=== PATIENT | male | born 1950 | race Caucasian/White ===

== ENCOUNTER 2019-10-17 10:19 | Emergency (ER) | payer MEDICARE, SELFPAY ==
[2019-10-17 10:21] VITALS: BP 161/101; PULSE 73; RESP 13; TEMP 36.5; O2SAT 97; BMI 29.0
--- NOTE | 2019-10-17 10:21 | CT_ITS ---
STUDY: CT BRAIN WITHOUT CONTRAST REASON FOR EXAM: Male, 69 years old. CVA RADIATION DOSAGE (If Supplied By Facility): CTDIvol = ( 44.99 ) mGy, DLP = ( 796.11 ) mGycm TECHNIQUE: Transaxial CT imaging of the brain was performed without administration of intravenous contrast material. Individualized dose optimization techniques were used for this CT. COMPARISON: No relevant priors. FINDINGS: Normal soft tissue structures. Normal calvarium. There is mild cerebral atrophy with widening of the extra-axial spaces and ventricular dilatation. There are areas of decreased attenuation within the white matter tracts of the supratentorial brain, consistent with microvascular disease changes. Normal basal ganglia and thalami. Normal brainstem. There is mild cerebellar atrophy. There is no intracranial hemorrhage. There is evidence of a increased attenuation of the right middle cerebral artery. Intraluminal thrombus should be ruled out. Correlation with the CTA is recommended. There is opacification of the right maxillary sinus. Partial opacification of the right ethmoid sinus. CT/Brain/Head without Contrast IMPRESSION: Chronic involutional changes of the brain. Findings in keeping with a hyperdense right middle cerebral artery. Correlation with the CTA is recommended. N.B. : The above information has been verbally conveyed by Kirit Luciano to Puneet Ozuna on 10/17/2019 10:34:58 (ET). Electronically Signed: Kirit Luciano, at 10:36 EDT , Service support ,
--- NOTE | 2019-10-17 10:21 | EKG12_ITS ---
Test Reason : STROKE Blood Pressure : / mmHG Vent. Rate : 064 BPM Atrial Rate : 064 BPM P-R Int : 188 ms QRS Dur : 084 ms QT Int : 438 ms P-R-T Axes : 056 007 046 degrees QTc Int : 451 ms Normal sinus rhythm Normal ECG Confirmed by MARLA ALVA ([id number]), commissioning editor KAYLA ZEPEDA ([id number]) on 10/19/2019 11:50:02 AM Referred By: FIORDALIZA Confirmed By:MARLA ALVA
--- NOTE | 2019-10-17 10:25 | CM.ED ---
SOCIAL WORK Responded to Stroke Alert. Patient in CT. No family present at this time. Will remain available for needs. Rickey Siddiqui, HAND DRY CLEANER, HAND FOLDER
--- NOTE | 2019-10-17 10:27 | CT_ITS ---
STUDY: CTA HEAD AND NECK WITH CONTRAST REASON FOR EXAM: Male, 69 years old. SLURRED SPEECH, STROKE ALERT, NEURO DEFICIT RADIATION DOSAGE (If Supplied By Facility): CTDIvol = ( 19.33 ) mGy, DLP = ( 726.32 ) mGycm TECHNIQUE: CT angiography was performed with a multi-detector CT scanner. Data acquisition was obtained from the skull base through the vertex following intravenous administration of 100ML ISOVUE 370. MIP images were reconstructed from the axial data set. Post-processing of the angiographic images was performed, with multiplanar reformation and 3D reconstruction. Individualized dose optimization techniques were used for this CT. COMPARISON: No relevant priors. FINDINGS: Normal bilateral petrous carotid arteries. Normal right cavernous carotid artery with a normal supraclinoid bifurcation. Normal left cavernous carotid artery with a normal supraclinoid bifurcation. Normal right A1 segments of the anterior cerebral artery. Normal left A1 segments of the anterior cerebral artery. Normal intact anterior communicating artery (ACOM). Normal bilateral A2 segments of the anterior cerebral arteries. Normal right M1 and M2 segments of the middle cerebral arteries, with a normal M1 bifurcation. Normal left M1 and M2 segments of the middle cerebral arteries, with a normal M1 bifurcation. Normal right posterior communicating artery (PCOM). Normal left posterior communicating artery (PCOM). Normal bilateral vertebral arteries. Normal basilar artery with a normal basilar bifurcation. The visualized bilateral superior cerebellar (SCA) arteries are normal. Normal bilateral P1, P2 and visualized P3 segments of the posterior cerebral arteries. There is no demonstrated aneurysm of the [place]. There is no demonstrated abnormality of the visualized brain. There is a 7.4 mm x 6 mm hypodensity in the lower pole of the left lobe of the thyroid. AORTIC ARCH: Normal visualized aortic arch. Normal origins of the brachiocephalic, left common carotid, and left subclavian arteries. RIGHT CAROTID ARTERIES: Normal right common carotid artery (CCA). Normal right common carotid bulb. Normal origin of the right internal carotid (ICA) artery without a hemodynamically significant stenosis. Normal visualized cervical portion of the right internal carotid artery. Normal origin of the right external carotid artery (ECA). LEFT CAROTID ARTERIES: Normal left common carotid artery (CCA). Normal left common carotid bulb. Normal origin of the left internal carotid (ICA) artery without a hemodynamically significant stenosis. Normal visualized cervical portion of the left internal carotid artery. Normal origin of the left external carotid artery (ECA). VERTEBRAL ARTERIES: There is enhancement within the bilateral vertebral arteries with a small left vertebral artery, and a dominant right vertebral artery. CT/CTA Head AND Neck W/ Contrast IMPRESSION: Normal CTA Head and neck with contrast. N.B. : The above information has been verbally conveyed by Kirit Luciano to Puneet Ozuna on 10/17/2019 11:08:37 (ET). Electronically Signed: Kirit Luciano, at 11:09 EDT , Service support ,
--- NOTE | 2019-10-17 10:28 | NURSING ---
STROKE ALERT CALLED PRIOR TO ARRIVAL [id number]
--- NOTE | 2019-10-17 10:30 | NURSING ---
NO OLD EKGS
[2019-10-17 10:36] VITALS: O2SAT 99
[2019-10-17 10:37] VITALS: BMI 29.0
[2019-10-17 10:42] LABS: Absolute Lymphocyte Count 1.97 X10^3/uL (0.83-4.51); Absolute Neutrophil Count 5.1 X10^3/uL (2.0-7.7); Basophil# 0.06 X10^3/uL; Basophil% 0.7 % (0-1); Eosinophil# 0.38 X10^3/uL; Eosinophils% 4.6 % (0-5); Hematocrit 47.8 % (40-54); Hemoglobin 15.7 g/dL (13.0-16.5); Lymphocyte # 1.97 X10^3/ul (4.0); Lymphocyte % 23.6 % (19-41); Mean Corp Hgb Conc 32.8 g/dL (32-36); Mean Corpuscular Hgb 30.8 pg (27.0-32.0); Mean Corpuscular Volume 93.7 fL (80-94); Mean Platelet Vol. 10.1 fl (6.2-12.0); Monocyte% 9.6 % (0-10); NRBC Flagged by Analyzer 0 % (0-5); Platelet Count 268 K/mm3 (150-450); RBC Distribution Width CV 12.3 % (11.6-14.6); RBC Distribution Width SD 42.2 fl (35.1-43.9); White Blood Count 8.4 K/mm3 (4.4-11.0)
[2019-10-17 10:51] VITALS: BP 172/100; PULSE 84; RESP 18; O2SAT 97
--- NOTE | 2019-10-17 10:58 | NURSING ---
CHEMISTRIES HEMOLIZED.
[2019-10-17 10:59] LABS: International Normalized Ratio 1.1; Prothrombin Time (Protime)PT. 13.2 SECONDS (11.7-14.9)
--- NOTE | 2019-10-17 11:08 | ED.RN ---
PT CALLED HIS NIECE AND TOLD HER WHERE HE WAS AT. I THEN TALKED WITH HER EXPLAINING THE SITUATION AND SHE ASSURED ME HE IS APPROPRIATE FOR SELF AND HIS HX OF A TBI. INFORMATION WAS THEN RELAYED TO DR MANCERA.
[2019-10-17 11:24] LABS: Anion Gap 3 (5-15); BUN 20 mg/dL (7-18); BUN/Creat Ratio 18.9 RATIO (10-20); Calcium,Total 8.3 mg/dL (8.5-10.1); Chloride 106 mmol/L (98-107); Creatinine, Serum 1.06 mg/dL (0.70-1.30); EST Glomerular Filtration Rate 74 mL/min (>60); Est Glom Filt Rate - Afr Amer 89 mL/min (>60); Estimated Creatinine Clearance 59.35 ml/min; Glucose 102 mg/dL (74-106); Potassium 3.9 mmol/L (3.5-5.1); Sodium Level 138 mmol/L (136-145)
[2019-10-17 11:26] VITALS: BP 142/85; PULSE 64; RESP 16; O2SAT 97
--- NOTE | 2019-10-17 11:30 | RAD_ITS ---
STUDY: X-RAY CHEST REASON FOR EXAM: Male, 69 years old. CONFUSION, NEURO SX TECHNIQUE: Single AP portable view of the chest. COMPARISON: None. FINDINGS: EKG electrodes are seen. The lungs are clear and expanded. There is no demonstrated pleural abnormality. Normal size heart. Normal mediastinum and rangel. Normal visualized pulmonary arteries. There is atherosclerotic tortuosity of the aortic arch and descending thoracic aorta. Normal visualized thoracic spine. Healed left clavicular fracture. There is no demonstrated abnormality of the visualized soft tissue structures of the upper abdomen. RAD/Chest 1 View IMPRESSION: No acute abnormality is seen. Electronically Signed: Kirit Luciano, at 11:56 EDT , Service support ,
--- NOTE | 2019-10-17 12:00 | ED.DCSUM_ITS ---
- ER Visit Summary Date of Service: 10/17/19 Chief Complaint: Confusion History of Present Illness: The patient is a 69 M who arrives by EMS as a stroke team activation. He was last known well at 9 AM this morning. He was driving between [place] and [facility]. He got lost. He called 911 for help. EMS noted slurred speech. They spoke with him and he told them he had a history of stroke, so they brought him here. They did not notice any other deficits. His blood sugar was normal. He was hypertensive initially for EMS. Patient has no other complaints. He said he takes aspirin daily but denies any other blood thinners or other medications. Physical Examination: Afebrile and vital signs unremarkable. Blood pressure 161/101. NIH stroke scale is 1 for mild dysarthria. He is giggling and giddy during exam but otherwise his neurologic exam is unremarkable. Heart regular. Lungs clear. Abdomen soft. Test Results: See below Emergency Department Course and Treatment: Patient presents as a stroke team. N IH is 1. He was taken immediately to the CAT scanner. This showed a possible right MCA lesion as well as chronic changes. CTA was ordered. Tele-stroke doctor was consulted. He advised no TPA. Did recommend follow-up with CTA head and neck. Patient's EKG and labs were all unremarkable. CTA demonstrated no lesions. We were able to get a hold of the patient's family. He does not have a history of stroke. He has a history of TBI. He does drive around and normally functions pretty well. He does occasionally get confused, and this is not new. His speech is not new. His behavior is not new. He has no other complaints. They feel that he is at baseline. Patient had no changes in his exam. It sounds like he got lost and he knew that he could call 911. Family will be picking him up, follow-up as an outpatient. Treatment Plan: As above Disposition: Discharged Impression: Dysarthria, history of TBI This note was generated with [employer] dictation software. It may contain incorrect words, spelling, and punctuation that were not noted in review of the chart prior to signing
--- NOTE | 2019-10-17 12:04 | ED.DEP ---
ED Disposition - Plan for ED Patient: Instructions: Risk Factors for Stroke Additional Instructions: follow up with your doctor
[2019-10-17 12:15] VITALS: BP 145/82; PULSE 67; RESP 15; O2SAT 97
== END 2019-10-17 12:24 | disposition home or self-care (01) ==
PROVIDERS: Emergency Provider Emergency Medicine
DX: R47.1 Dysarthria and anarthria (principal); I10 Essential (primary) hypertension; Z79.82 Long term (current) use of aspirin; Z87.820 Personal history of traumatic brain injury
CPT/HCPCS: 70450; 70496; 70498; 71045; 80048; 84484; 85025; 85610; 85730; 93005; 96374; 99285; J7030; Q9967; A4216